=== PATIENT | male | born 1985 | race Caucasian/White ===

== ENCOUNTER 2017-01-18 04:05 | Emergency (ER) | payer BC ==
[2017-01-18 04:13] VITALS: BP 167/100
[2017-01-18] MEDS ORDERED: Ondansetron 4 MG/2 ML SDV IVPUSH ONE (04:24)
[2017-01-18] MEDS ORDERED: HYDROmorphone 1 MG/ML Syringe IVPUSH ONE (04:24)
[2017-01-18] MEDS ORDERED: Sodium Chloride 0.9% 1,000 ML IV SCH (04:30)
--- NOTE | 2017-01-18 04:30 | EDM.PDOC ---
<Otto De Guzman - Last Filed: 01/18/17 08:05> ED HPI GENERAL MEDICAL PROBLEM - General Chief Complaint: Abdominal Pain Stated Complaint: SEVERE UPPER RIGHT PAIN AND VOMITING Time Seen by Provider: 01/18/17 04:13 - Related Data Allergies Allergy/AdvReac Type Severity Reaction Status Date / Time No Known Allergies Allergy Verified 01/18/17 04:12 Home Meds: Home Meds Hyoscyamine Sulfate [Levsin-Sl] 0.125 mg SL QID PRN #10 tab.subl 01/18/17 [Rx] Course - Vital Signs Last Recorded V/S: Last Vital Signs Temp 36.9 C 01/18/17 04:09 Pulse 76 01/18/17 06:30 Resp 16 01/18/17 06:30 BP 167/100 H 01/18/17 04:09 Pulse Ox 96 01/18/17 06:30 - Orders/Labs/Meds Labs: Laboratory Tests 01/18/17 01/18/17 Range/Units 04:45 04:45 WBC 9.57 H (4.23-9.07) K/mm3 RBC 5.32 (4.63-6.08) M/mm3 Hgb 15.7 (13.7-17.5) gm/L Hct 46.6 (40.1-51.0) % MCV 87.6 (79.0-92.2) fl MCH 29.5 (25.7-32.2) pg MCHC 33.7 (32.2-35.5) g/dl RDW Std Deviation 42.2 (35.1-43.9) fL Plt Count 266 (163-337) K/mm3 MPV 10.9 (9.4-12.3) fl Neutrophils % (Manual) 61 H (40-60) % Band Neutrophils % 0 (0-10) % Lymphocytes % (Manual) 22 (20-40) % Atypical Lymphs % 1 % Monocytes % (Manual) 9 (2-10) % Eosinophils % (Manual) 5 (0.8-7.0) % Basophils % (Manual) 2 H (0.2-1.2) Platelet Estimate Adequate Plt Morphology Comment Normal RBC Morph Comment Normal Sodium 140 (136-145) mEq/L Potassium 4.1 (3.5-5.1) mEq/L Chloride 107 (98-107) mEq/L Carbon Dioxide 27 (21-32) mEq/L Anion Gap 10.1 (5-15) BUN 13 (7-18) mg/dL Creatinine 1.1 (0.7-1.3) mg/dL Est Cr Clr Drug Dosing 113.13 mL/min Estimated GFR (MDRD) > 60 (>60) mL/min BUN/Creatinine Ratio 11.8 L (14-18) Glucose 112 H (74-106) mg/dL Calcium 8.9 (8.5-10.1) mg/dL Total Bilirubin 0.2 (0.2-1.0) mg/dL AST 17 (15-37) U/L ALT 49 (16-63) U/L Alkaline Phosphatase 101 (46-116) U/L Total Protein 7.4 (6.4-8.2) g/dl Albumin 3.6 (3.4-5.0) g/dl Globulin 3.8 gm/dL Albumin/Globulin Ratio 1.0 (1-2) Lipase 126 (73-393) U/L Meds: Medications Discontinued Medications Generic Name Dose Route Start Last Admin Trade Name Freq PRN Reason Stop Dose Admin Diatrizoate Meglum/Diatrizoate Sod 90 ml 01/18/17 06:29 01/18/17 06:30 Gastrografin 37% PO 01/18/17 06:30 90 ml ONETIME ONE Administration Hydromorphone HCl 1 mg 01/18/17 04:24 01/18/17 04:35 Dilaudid IVPUSH 01/18/17 04:25 1 mg ONETIME ONE Administration Sodium Chloride 1,000 mls @ 150 mls/hr 01/18/17 04:30 01/18/17 04:35 Normal Saline IV 150 mls/hr ASDIRECTED LINO Administration Iopamidol 125 ml 01/18/17 06:29 01/18/17 06:30 Isovue-300 (61%) IVPUSH 01/18/17 06:30 125 ml ONETIME ONE Administration Ondansetron HCl 4 mg 01/18/17 04:24 01/18/17 04:34 Zofran IVPUSH 01/18/17 04:25 4 mg ONETIME ONE Administration Sodium Chloride 10 ml 01/18/17 06:29 01/18/17 06:30 Saline Flush FLUSH 10 ml ONETIME PRN Administration IV Flush - Re-Assessments/Exams Free Text/Narrative Re-Assessment/Exam: 01/18/17 07:42. Have assumed care from Dr. Wilks at change of shift. CT of abdomen and pelvis does show gallstones in the gallbladder and possible wall thickening. No other acute findings present. He is resting very comfortably. Pain is gone. He now has Very minimal tenderness of the right upper quadrant. We have him scheduled for ultrasound of the gallbladder for next Saturday electively. He has been advised to follow-up with Dr. [facility], our General Surgeon information technology director today. He's been strongly advised to avoid all fatty foods in the meantime. He had a tremendous fat load last evening with the Brots and donuts. He will return to ED if symptoms worsening at all over the weekend. Departure - Departure Time of Disposition: 07:44 Disposition: Home, Self-Care 01 Condition: Fair Clinical Impression: Cholecystitis Abdominal pain Qualifiers: Abdominal location: right upper quadrant Qualified Code(s): R10.11 - Right upper quadrant pain - Discharge Information Prescriptions: Hyoscyamine Sulfate [Levsin-Sl] 0.125 mg SL QID PRN #10 tab.subl PRN Reason: Pain Instructions: Abdominal Pain, Adult, [id number], Cholecystitis, [id number] Referrals: PCP,None [Primary Care Provider] - Forms: ED Department Discharge Additional Instructions: Avoid all fatty and greasy food for now, anything of that nature will be more likely to trigger another attack. Clear liquids and very bland diet only as tolerated today. Levsin 0.125 mg under the tongue if needed for any type of right upper belly discomfort. You have been scheduled for ultrasound of your gallbladder next SaturdayJanuary [address] [facility] is our general surgeon information technology director. Call [phone] for appointment next week for any time after you have had your ultrasound. Return to ED if symptoms worsening in any way. <Gerardo Wilks - Last Filed: 01/19/17 19:38> ED HPI GENERAL MEDICAL PROBLEM - General Source of Information: Reports: Patient, Family (), RN Notes Reviewed History Limitations: Reports: No Limitations - History of Present Illness INITIAL COMMENTS - FREE TEXT/NARRATIVE: The patient states that he developed right upper quadrant abdominal pain that radiates through to his right back, around 18:00 last night, not long after he ate dinner consisting of bratwurst, sauerkraut, and a doughnut. The pain is constant. He has not identified any modifiers. He developed nausea and vomiting around 02:00 this morning. No recent fever, cause patient, diarrhea, or urinary symptoms. The patient states that he often gets similar symptoms, much milder, after eating greasy food. He had a similarly severe episode around 2015, but he did not seek medical evaluation, because it resolved after about 4 hours. Right Upper Abdomen Pain Score (Numeric/FACES): 6 Past Medical History Endocrine/Metabolic History: Reports: Obesity/BMI 30+ - Past Surgical History HEENT Surgical History: Reports: Oral Surgery ([place] teeth extraction) Social & Family History - Family History Family Medical History: Noncontributory - Tobacco Use Smoking Status *Q: Current Some Day Smoker Years of Tobacco use: 17 Packs/Tins Daily: 1 Packs/Tins Daily Comment: Trying to quit - Alcohol Use Alcohol Use History: Yes Alcohol Use Frequency: Socially - Recreational Drug Use Recreational Drug Use: No - Living Situation & Occupation Living situation: Reports: , with Spouse Occupation: Employed (truck driver) ED ROS GENERAL - Review of Systems Review Of Systems: See Below Constitutional: Reports: No Symptoms HEENT: Reports: No Symptoms Respiratory: Reports: No Symptoms Cardiovascular: Reports: No Symptoms Endocrine: Reports: No Symptoms GI/Abdominal: Reports: No Symptoms : Reports: No Symptoms Musculoskeletal: Reports: No Symptoms Skin: Reports: No Symptoms Neurological: Reports: No Symptoms Psychiatric: Reports: No Symptoms Hematologic/Lymphatic: Reports: No Symptoms Immunologic: Reports: No Symptoms ED EXAM, GI/ABD - Physical Exam Exam: See Below Exam Limited By: No Limitations General Appearance: Alert, WD/WN, Mild Distress (Appears uncomfortable) Eyes: Bilateral: Normal Appearance, EOMI Ears: Normal External Exam, Hearing Grossly Normal Nose: Normal Inspection, No Blood Throat/Mouth: Normal Inspection, Normal Lips, Normal Voice, No Airway Compromise Head: Atraumatic, Normocephalic Neck: Normal Inspection, Full Range of Motion Respiratory/Chest: No Respiratory Distress, Lungs Clear, Normal Breath Sounds, No Accessory Muscle Use Cardiovascular: Normal Peripheral Pulses, Regular Rate, Rhythm, No Gallop, No JVD, No Murmur, No Rub GI/Abdominal: Normal Bowel Sounds, Soft, No Organomegaly, No Distention, No Abnormal Bruit, No Mass, Tenderness (Right upper quadrant only. Nontender elsewhere.), Davis's Sign, Other (Obese) (Male) Exam: Deferred Rectal (Males) Exam: Deferred Back Exam: Normal Inspection, Full Range of Motion. No: CVA Tenderness (L), CVA Tenderness (R) Extremities: Normal Inspection, Normal Range of Motion, No Pedal Edema, Normal Capillary Refill Neurological: Alert, Oriented, Normal Cognition, No Motor/Sensory Deficits Psychiatric: Normal Affect Skin Exam: Warm, Dry, Intact, Normal Color, No Rash Lymphatic: No Adenopathy Course - Orders/Labs/Meds Labs: Laboratory Tests 01/18/17 01/18/17 Range/Units 04:45 04:45 WBC 9.57 H (4.23-9.07) K/mm3 RBC 5.32 (4.63-6.08) M/mm3 Hgb 15.7 (13.7-17.5) gm/L Hct 46.6 (40.1-51.0) % MCV 87.6 (79.0-92.2) fl MCH 29.5 (25.7-32.2) pg MCHC 33.7 (32.2-35.5) g/dl RDW Std Deviation 42.2 (35.1-43.9) fL Plt Count 266 (163-337) K/mm3 MPV 10.9 (9.4-12.3) fl Neutrophils % (Manual) 61 H (40-60) % Band Neutrophils % 0 (0-10) % Lymphocytes % (Manual) 22 (20-40) % Atypical Lymphs % 1 % Monocytes % (Manual) 9 (2-10) % Eosinophils % (Manual) 5 (0.8-7.0) % Basophils % (Manual) 2 H (0.2-1.2) Platelet Estimate Adequate Plt Morphology Comment Normal RBC Morph Comment Normal Sodium 140 (136-145) mEq/L Potassium 4.1 (3.5-5.1) mEq/L Chloride 107 (98-107) mEq/L Carbon Dioxide 27 (21-32) mEq/L Anion Gap 10.1 (5-15) BUN 13 (7-18) mg/dL Creatinine 1.1 (0.7-1.3) mg/dL Est Cr Clr Drug Dosing 113.13 mL/min Estimated GFR (MDRD) > 60 (>60) mL/min BUN/Creatinine Ratio 11.8 L (14-18) Glucose 112 H (74-106) mg/dL Calcium 8.9 (8.5-10.1) mg/dL Total Bilirubin 0.2 (0.2-1.0) mg/dL AST 17 (15-37) U/L ALT 49 (16-63) U/L Alkaline Phosphatase 101 (46-116) U/L Total Protein 7.4 (6.4-8.2) g/dl Albumin 3.6 (3.4-5.0) g/dl Globulin 3.8 gm/dL Albumin/Globulin Ratio 1.0 (1-2) Lipase 126 (73-393) U/L Meds: Medications Discontinued Medications Generic Name Dose Route Start Last Admin Trade Name Freq PRN Reason Stop Dose Admin Diatrizoate Meglum/Diatrizoate Sod 90 ml 01/18/17 06:29 01/18/17 06:30 Gastrografin 37% PO 01/18/17 06:30 90 ml ONETIME ONE Administration Hydromorphone HCl 1 mg 01/18/17 04:24 01/18/17 04:35 Dilaudid IVPUSH 01/18/17 04:25 1 mg ONETIME ONE Administration Sodium Chloride 1,000 mls @ 150 mls/hr 01/18/17 04:30 01/18/17 04:35 Normal Saline IV 150 mls/hr ASDIRECTED LINO Administration Iopamidol 125 ml 01/18/17 06:29 01/18/17 06:30 Isovue-300 (61%) IVPUSH 01/18/17 06:30 125 ml ONETIME ONE Administration Ondansetron HCl 4 mg 01/18/17 04:24 01/18/17 04:34 Zofran IVPUSH 01/18/17 04:25 4 mg ONETIME ONE Administration Sodium Chloride 10 ml 01/18/17 06:29 01/18/17 06:30 Saline Flush FLUSH 10 ml ONETIME PRN Administration IV Flush - Re-Assessments/Exams Free Text/Narrative Re-Assessment/Exam: 01/18/17 07:[address] Dave, and care of the patient turned over to him at this time, for change of shift.
[2017-01-18] MEDS ORDERED: Iopamidol 612 MG/ML 150 ML Bottle IVPUSH ONE (06:29)
[2017-01-18] MEDS ORDERED: Diatrizoate Meglumine/Diatrizoate Sodium 37% 120 ML Bottle PO ONE (06:29)
[2017-01-18] MEDS ORDERED: Sodium Chloride 0.9% 10 ML Syringe FLUSH PRN (06:29)
--- NOTE | 2017-01-18 07:06 | CT ---
CT abdomen and pelvis Technique: Multiple axial sections were obtained from above the dome of the diaphragm inferiorly through the pubic symphysis. Intravenous and oral contrast was utilized. Delayed images were also obtained through the abdomen and pelvis. Findings: Small calcified granuloma is seen within the right lung base. Liver shows no focal abnormality. Gallbladder shows several gallstones. Low density is noted around the gallbladder possibly due to gallbladder wall thickening. Spleen appears within normal limits. Adrenal glands are unremarkable. Pancreas is normal. Kidneys show symmetric contrast enhancement without hydronephrosis or mass. Aorta shows no aneurysmal dilatation. Small lymph nodes are seen medial to the cecum which are believed to be incidental. Appendix appears small and is without evidence of appendicitis. No pelvic mass or adenopathy is seen. Delayed images shows contrast excretion into both ureters which show no dilatation. Contrast noted within the bladder. No pelvic mass or adenopathy is seen. Mild increased stool is noted throughout the colon. Bone window settings were reviewed which appear within normal limits for the patient's age. Impression: 1. Several gallstones with low density seen next to the gallbladder possibly due to gallbladder wall thickening. Gallbladder ultrasound could be obtained to confirm. 2. Mild increased stool noted throughout the colon. 3. Other incidental findings as noted above. Diagnostic code #3
== END 2017-01-18 08:15 | disposition home or self-care (01) ==
LOC: JD.ED 04:05
DX: K81.9 Cholecystitis, unspecified (principal); F17.210 Nicotine dependence, cigarettes, uncomplicated; E66.9 Obesity, unspecified; Z68.34 Body mass index [BMI] 34.0-34.9, adult
CPT/HCPCS: 36415; 74177; 80053; 83690; 85025; 96361; 96374; 96375; 99284; J1170; J2405; J7040; J7050; Q9963; Q9967